=== PATIENT | male | born 1975 | race African-American/Black ===

== ENCOUNTER 2021-06-21 20:05 | Emergency (ER) | payer SELFPAY ==
[~2021-06-21] VITALS: Ht 182.9 cm; Wt 72.0 kg
[2021-06-21 20:13] VITALS: BP 138/98
== END 2021-06-21 21:50 | disposition left against medical advice (07) ==
LOC: ER 20:05
DX: Z53.21 Procedure and treatment not carried out due to patient leaving prior to being seen by health care provider (principal)